=== PATIENT | male | born 1985 | race Two or more races ===

== ENCOUNTER 2017-12-22 16:29 | Inpatient (IN) | payer SELFPAY ==
[~2017-12-22] VITALS: Ht 165.1 cm; Wt 100.7 kg
[2017-12-22] MEDS ORDERED: cloNIDine HCL 0.1 MG TAB PO ONE (17:00)
[2017-12-22 17:49] LABS: Basophils # (auto) 0.1 uL; Basophils % (auto) 0.9 % (0.0-2.0); Eosinophils # (auto) 0.3 uL; Hematocrit 48.8 % (41.0-53.0); Hemoglobin 16.5 g/dL (13.5-17.5); Lymphocytes # (auto) 2.5 uL; Lymphocytes % (auto) 18.7 % (10.0-50.0); Mean Corpuscular Hemoglobin 29.6 pg (28.0-32.0); Mean Corpuscular Hgb Conc. 33.9 g/dL (32.0-36.0); Mean Corpuscular Volume 87.3 fL (80.0-100.0); Monocytes # (auto) 1.1 uL; Monocytes % (auto) 8.2 % (0.0-12.0); Neutrophils # (auto) 9.2 uL; Neutrophils % (auto) 70.2 % (37.0-80.0); Nucleated Red Blood Cells % 0.2 %; Platelet Count (auto) 253 10^3/uL (140-450); Red Blood Cells 5.59 10^6/uL (4.5-5.90); Red Cell Distribution Width 13.6 % (11.8-14.3); White Blood Cell 13.1 10^3/uL (4.4-10.8)
[2017-12-22 17:59] LABS: Albumin 4.2 g/dL (3.4-5.0); Calcium 8.7 mg/dL (8.5-10.1); Potassium 3.6 mmol/L (3.5-5.1)
[2017-12-22] MEDS ORDERED: ALUM & MAG HYDROX-SIMETH LIQ(MAALOX) 30 ML PO ONE (18:00)
[2017-12-22] MEDS ORDERED: LIDOCAINE VISCOUS 2% 15ML UD PO ONE (18:00)
[2017-12-22] MEDS ORDERED: DONNATAL 5ml ORAL Elix (BELLADONNA ALK-PHENOBARB) PO ONE (18:00)
[2017-12-22 18:01] LABS: BUN/Creatinine Ratio 10.6
[2017-12-22 18:04] LABS: Bilirubin, Total 0.6 mg/dL (0.2-1.0); Total Protein 8.7 g/dL (6.4-8.2)
[2017-12-22] MEDS ORDERED: cefTRIAXone W LIDOCAINE 1 GM IM IM ONE (19:30)
[2017-12-22] MEDS ORDERED: amLODIPine BESYLATE 5 MG TAB PO ONE ×2 (20:00→22:00)
[2017-12-22] MEDS ORDERED: cefTRIAXone SOD 1,000 MG VL ONE (21:01)
[2017-12-22] MEDS ORDERED: LABETALOL HCL 5 MG/ML ML 20ML VIAL IV ONE (23:45)
[2017-12-23] MEDS ORDERED: NITROGLYCERIN 0.4 MG SL TAB SL PRN (00:30)
[2017-12-23] MEDS ORDERED: MORPHINE SULFATE 4 MG/ML SYR/VIAL IV PRN (00:30)
[2017-12-23] MEDS ORDERED: LABETALOL HCL 200 MG TAB PO ONE (02:00)
[2017-12-23] MEDS ORDERED: ONDANSETRON HCL 4 MG/2 ML VIAL IV PRN (04:15)
[2017-12-23] MEDS ORDERED: ACETAMINOPHEN 500 MG TAB PO PRN (04:15)
[2017-12-23] MEDS ORDERED: LABETALOL HCL 5 MG/ML ML 20ML VIAL IV PRN (04:15)
[2017-12-23] MEDS ORDERED: HYDROcodone-ACET 5/325MG TAB PO PRN (04:15)
[2017-12-23 05:00] VITALS: BP 169/100
[2017-12-23 08:17] LABS: Basophils # (auto) 0.1 uL; Basophils % (auto) 0.6 % (0.0-2.0); Eosinophils # (auto) 0.3 uL; Eosinophils % (auto) 3.5 % (0.0-7.0); Hematocrit 46.8 % (41.0-53.0); Lymphocytes # (auto) 2.6 uL; Mean Corpuscular Hemoglobin 29.7 pg (28.0-32.0); Mean Corpuscular Hgb Conc. 34.1 g/dL (32.0-36.0); Monocytes % (auto) 10.6 % (0.0-12.0); Neutrophils # (auto) 5.8 uL; Neutrophils % (auto) 59.3 % (37.0-80.0); Nucleated Red Blood Cells % 0.1 %; Platelet Count (auto) 237 10^3/uL (140-450); Red Blood Cells 5.39 10^6/uL (4.5-5.90); Red Cell Distribution Width 13.6 % (11.8-14.3); White Blood Cell 9.8 10^3/uL (4.4-10.8)
[2017-12-23 08:41] LABS: BUN/Creatinine Ratio 11.2; Calcium 8.6 mg/dL (8.5-10.1); Potassium 3.7 mmol/L (3.5-5.1)
[2017-12-23 09:00] VITALS: BP 139/124
[2017-12-23] MEDS ORDERED: LISINOPRIL 10 MG TAB PO SCH (10:00)
[2017-12-23 13:00] VITALS: BP 156/106
[2017-12-23] MEDS ORDERED: FUROSEMIDE 40 MG/4 ML VIAL IV ONE (15:00)
[2017-12-23 17:00] VITALS: BP 166/116
[2017-12-23] MEDS ORDERED: amLODIPine BESYLATE 5 MG TAB PO ONE (17:15)
[2017-12-23 19:30] VITALS: BP 153/95
[2017-12-23 22:17] VITALS: BP 115/72
[2017-12-24 04:58] VITALS: BP_SYST 136; BP_SYST 139; BP_DIAS 67; BP_DIAS 89
== END 2017-12-23 21:08 | disposition home or self-care (01) | DRG 392 ==
LOC: ER 16:33 → TELE 16:34 → TELE-WESTW 12-23 03:18
PROVIDERS: ADMIT Nurse Practitioner Family; ATTEND Nurse Practitioner Family
DX: K29.70 Gastritis, unspecified, without bleeding (principal); E66.01 Morbid (severe) obesity due to excess calories; I16.9 Hypertensive crisis, unspecified; F12.10 Cannabis abuse, uncomplicated; I10 Essential (primary) hypertension; Z82.49 Family history of ischemic heart disease and other diseases of the circulatory system; Z68.36 Body mass index [BMI] 36.0-36.9, adult
CPT/HCPCS: 36415; 71046; 80048; 80053; 83690; 84484; 85025; 93005; 94761; 96372; 96374; J0696